=== PATIENT | female | born 1945 | race Caucasian/White ===

== ENCOUNTER 2024-10-14 11:09 | Outpatient (CLI) | payer MEDICARE, BC ==
--- NOTE | 2024-10-14 16:28 | RADIOLOGY REPORT ---
EXAM: MR MRI LOWER EXTREMITY LEFT HISTORY: PAIN IN LEFT KNEE COMPARISON: None TECHNIQUE: Multiplanar, multisequence imaging of the left knee was performed without contrast FINDINGS: MEDIAL COMPARTMENT: Complex tear of the peripheral 1/3 of the central body of the medial meniscus. Ex tension to the peripheral 1/3 of the posterior body involving a longitudinal vertical type pattern. No focal chondrosis or subchondral edema. LATERAL COMPARTMENT: Intact lateral meniscus. No focal chondrosis or subchondral edema. PATELLOFEMORAL COMPARTMENT: Partial-thickness chondrosis of the central medial patellar facet and med gabriele ridge. Trace underlying subchondral edema. CRUCIATE LIGAMENTS: Intact anterior and posterior cruciate ligaments. MEDIAL SUPPORTING STRUCTURES: Intact medial collateral ligament. LATERAL SUPPORTING STRUCTURES: Intact iliotibial band, lateral capsular ligament, fibular collateral ligament, popliteus, and biceps femoris tendons EXTENSOR MECHANISM: Intact JOINT SPACE/FLUID: Trace knee joint effusion. Dehisced Abrams's cyst with both superior and inferior e xtension. Inferior extension of fluid anteriorly into the pes anserine bursa . Prominent superior ex tension into the popliteal fossa and posterior to the vastus medialis. BONES: No acute fracture, osseous contusion, or aggressive focal osseous lesion MUSCLES: Normal in signal intensity and morphology NEUROVASCULAR: Unremarkable OTHER: None IMPRESSION: 1. Question symptomatic Abrams's cyst with evidence of dehiscence. 2. Complex tearing of the medial meniscus from the body to posterior horn.
== END 2024-10-14 23:59 | disposition home or self-care (01) ==
LOC: MRI02 11:09
PROVIDERS: ATTEND Nurse Practitioner Family
DX: S83.232A Complex tear of medial meniscus, current injury, left knee, initial encounter (principal); M71.22 Synovial cyst of popliteal space [Baker], left knee; M25.562 Pain in left knee; W01.0XXA Fall on same level from slipping, tripping and stumbling without subsequent striking against object, initial encounter; Y92.480 Sidewalk as the place of occurrence of the external cause; Y93.89 Activity, other specified; Y99.8 Other external cause status
CPT/HCPCS: 73721